=== PATIENT | female | born 1980 | race Caucasian/White ===

== ENCOUNTER 2020-02-22 12:53 | Emergency (ER) | payer BC ==
[~2020-02-22] VITALS: Ht 165.1 cm; Wt 61.2 kg
--- NOTE | 2020-02-22 13:05 | NUR ---
MAGO TONEY C/O ETOH, REQUESTING ALCOHOL DETOX, TO ER BED 13. HOOKED TO MONITOR. VSS. WILL CONTINUE TO MONTIOR ACCORDINGLY
--- NOTE | 2020-02-22 15:34 | NUR ---
PROVIDED W RESOURCES FOR ALCOHOL AND SUBSTANCE ABUSE
[2020-02-22 15:45] VITALS: BP 137/76
--- NOTE | 2020-02-22 15:45 | NUR ---
Patient discharged to home in stable condition. Written and verbal after care instructions given. Patient verbalizes understanding of instruction.
== END 2020-02-22 15:46 | disposition home or self-care (01) ==
LOC: ER 13:01
DX: F10.129 Alcohol abuse with intoxication, unspecified (principal); R45.1 Restlessness and agitation; Y90.9 Presence of alcohol in blood, level not specified

== ENCOUNTER 2020-02-22 22:15 | Emergency (ER) | payer BC ==
[~2020-02-22] VITALS: Ht 162.6 cm; Wt 54.4 kg
--- NOTE | 2020-02-22 22:30 | NUR ---
PT BIBRA 102 FROM [facility] FOR "BIZARRE BEHAVIOR" PER REPORT. PT STATES "I'VE BEEN DRINKING SINCE I WAS BORN". PT ADMITS TO DRINKING ALCOHOL TODAY. PT AAOX4, CALM AND COOPERATIVE, RESPIRATIONS EVEN AND UNLABORED ON RA W/ NAD NOTED. PT CONNECTED TO THE PATCH DRILLER AND POX
--- NOTE | 2020-02-23 01:16 | NUR ---
PT AAOX4. VSS. NO ACUTE DISTRESS NOTED. SAFETY PRECAUTIONS IN PLACE. SITTER AT BEDSIDE FOR SAFETY
--- NOTE | 2020-02-23 03:16 | NUR ---
PT PROVIDED WITH ORANGE JUICE AND CRACKERS.
--- NOTE | 2020-02-23 05:43 | NUR ---
PT AAOX4. CONTINIOUSLY SITTING ON THE E.D. FLOOR. PT WAS READY FOR DISCHARGED. UPON DISCHARGE PATIENT STATED "WHERE WILL I GO, TO MY HOTEL?" THEN STATED "I WILL GO BACK AND DRINK AGAIN." PT WAS PROVIDED WITH RESOURCES. PT WAS ALSO EDUCATED ON THE IMPORTANCE OF GOING TO AN AA MEETING. PT STATED "YOU KNOW WHAT, I WILL GO BACK TO THE HOTEL AND I WILL COME BACK LATER, LIKE I DID." PT THEN AMBULATED OUT OF THE E.D. WITH STEADY GAIT. PT WAS ASKED IF SHE WANTED A BUS PASS, PT DECLINED.
[2020-02-23 06:44] VITALS: BP 123/67
== END 2020-02-23 05:50 | disposition home or self-care (01) ==
LOC: ER 22:15
DX: F10.129 Alcohol abuse with intoxication, unspecified (principal); Z60.2 Problems related to living alone; Y90.9 Presence of alcohol in blood, level not specified